=== PATIENT | female | born 1990 | race Hispanic/Latino ===

== ENCOUNTER 2019-02-04 15:05 | Emergency (ER) | payer OTHER ==
[2019-02-04 15:52] LABS: APPEARANCE,URINE Clear (CLEAR); BILIRUBIN,URINE Negative (NEGATIVE); COLOR,URINE Yellow (YELLOW); GLUCOSE, URINE (UA) Negative (NEGATIVE); KETONES,URINE Negative (NEGATIVE); LEUKOCYTE ESTERASE ,URINE Small (NEGATIVE); NITRATE,URINE Negative (NEGATIVE); OCCULT BLOOD,URINE Large (NEGATIVE); PROTEIN,URINE Trace mg/dL (NEGATIVE); UROBILINOGEN,URINE 0.2 mg/dL (0.2-1.0)
[2019-02-04 16:01] LABS: BACTERIA,URINE Few /HPF (None Seen); RBC,URINE 51-100 /HPF (0-1)
[2019-02-04 16:02] LABS: SQUAMOUS EPITHELIAL CELL,UR Rare /HPF (0-2)
[2019-02-04] MEDS ORDERED: KETOROLAC TROMETHAMINE 60 MG/2 ML VIAL ONE (16:41)
== END 2019-02-04 17:14 | disposition home or self-care (01) ==
LOC: EDH 15:05
DX: N94.6 Dysmenorrhea, unspecified (principal); Z72.0 Tobacco use
CPT/HCPCS: 81001; 81025; 96372; 99284; J1885